=== PATIENT | male | born 2005 | race Caucasian/White ===

== ENCOUNTER 2023-01-03 14:04 | Emergency (ER) | payer BC ==
[~2023-01-03] VITALS: Ht 170.2 cm; Wt 90.0 kg
[2023-01-03 14:13] VITALS: BP 126/84; PULSE 105; TEMP 97; O2SAT 98
[2023-01-03] MEDS ORDERED: HYDROcodone/acetaminophen 10/325mg tab PO ONE (15:15)
[2023-01-03] MEDS ORDERED: naproxen 500mg tablet PO ONE (15:15)
[2023-01-03] MEDS ORDERED: LIDOCAINE 1%/EPI 1:100,000 inj. 10 ML multi-dose vial IJ ONE (15:35)
[2023-01-03 15:49] VITALS: RESP 18
[2023-01-03] MEDS ORDERED: HYDR-3965 PO (18:14)
== END 2023-01-03 18:22 | disposition home or self-care (01) ==
LOC: ER 14:07
DX: S62.603A Fracture of unspecified phalanx of left middle finger, initial encounter for closed fracture (principal); X58.XXXA Exposure to other specified factors, initial encounter; Y93.89 Activity, other specified; Y92.89 Other specified places as the place of occurrence of the external cause; Y99.8 Other external cause status
CPT/HCPCS: 26770; 73140; 99284; A6449

== ENCOUNTER 2023-07-09 13:58 | Emergency (ER) | payer BC, MEDICAID ==
[~2023-07-09] VITALS: Ht 162.6 cm; Wt 74.5 kg
[2023-07-09 14:28] VITALS: TEMP 97.8
[2023-07-09 15:05] LABS: BASOPHILS # (AUTO) 0.1 X10'3 (0-0.2); BASOPHILS % (AUTO) 0.6 % (0-1); EOSINOPHILS # (AUTO) 0.1 X10'3 (0-0.9); EOSINOPHILS % (AUTO) 1.4 % (0-6); HEMATOCRIT 44.7 % (42.0-52.0); HEMOGLOBIN 14.6 g/dl (14.0-17.9); LYMPHOCYTES # (AUTO) 1.9 X10'3 (1.1-4.8); LYMPHOCYTES % (AUTO) 18.3 % (21-51); MEAN CORPUSCULAR HEMOGLOBIN 27.8 PG (27.0-31.0); MEAN CORPUSCULAR HGB CONC 32.7 g/dL (33.0-36.5); MEAN CORPUSCULAR VOLUME 84.8 FL (78-98); MEAN PLATELET VOLUME 7.8 FL (7.4-10.4); MONOCYTES # (AUTO) 0.9 X10'3 (0-0.9); MONOCYTES % (AUTO) 8.4 % (2-12); NEUTROPHILS # (AUTO) 7.3 X10'3 (1.8-7.7); NEUTROPHILS % (AUTO) 71.3 % (42-75); PLATELET COUNT 316 X10'3 (140-440); RED BLOOD COUNT 5.27 X10'6 (4.70-6.10); RED CELL DISTRIBUTION WIDTH 14.5 % (11.5-14.5); WHITE BLOOD COUNT 10.2 X10'3 (4.5-11.0)
[2023-07-09 15:16] LABS: APTT 24 SECONDS (22-32); INR 1.1 INR; PROTHROMBIN TIME 11.6 SECONDS (9.0-12.0)
[2023-07-09 15:19] LABS: ALANINE AMINOTRANSFERASE 16 U/L (12-78); ALBUMIN 3.7 G/DL (3.4-5.0); ALBUMIN/GLOBULIN RATIO 0.9 (1.1-1.5); ALKALINE PHOSPHATASE 63 IU/L (20-180); ANION GAP 3 (8-16); ASPARTATE AMINO TRANSFERASE 15 U/L (10-37); BILIRUBIN,TOTAL 0.4 MG/DL (0.1-1.0); BLOOD UREA NITROGEN 9 MG/DL (7-18); BUN/CREATININE RATIO 10.3 (10.0-20.0); CALCIUM 8.6 MG/DL (8.5-10.1); CHLORIDE 104 MMOL/L (99-107); CREATININE 0.87 MG/DL (0.60-1.10); GLUCOSE 77 MG/DL (70-104); LIPASE 39 U/L (16-77); SODIUM 140 MMOL/L (135-145); TOTAL CARBON DIOXIDE 33.4 MMOL/L (24-32); TOTAL PROTEIN 7.6 G/DL (6.4-8.2); eCRCL 114 ML/MIN; eGFR > 90 ML/MIN
[2023-07-09 16:37] LABS: BILIRUBIN,URINE NEGATIVE (Neg); CLARITY,URINE CLOUDY (Clear); COLOR,URINE YELLOW (Yellow); GLUCOSE, URINE NEGATIVE (Neg); KETONES,URINE NEGATIVE (Neg); LEUKOCYTE ESTERASE ,URINE SMALL (Neg); NITRITES, URINE NEGATIVE (Neg); OCCULT BLOOD,URINE NEGATIVE (Neg); PH,URINE 8.5 (4.8-8.0); PROTEIN,URINE NEGATIVE (Neg)
[2023-07-09 16:43] LABS: UA COLLECTION TYPE CLN CATCH MIDSTREAM
[2023-07-09] MEDS ORDERED: iohexol 350MG/ML 100ml bottle IV ONE (16:43)
[2023-07-09 16:45] LABS: WBC,URINE 20-30 /HPF (0-4)
[2023-07-09 16:46] LABS: AMORPHOUS PHOSPHATES 4+; BACTERIA,URINE FEW /HPF (Neg); SQUAMOUS EPITHELIAL CELL,UR MODERATE /LPF (FEW)
[2023-07-09 17:30] VITALS: BP 132/84; PULSE 88; RESP 14; O2SAT 100
== END 2023-07-09 17:32 | disposition home or self-care (01) ==
LOC: ER 13:58
DX: S70.12XA Contusion of left thigh, initial encounter (principal); S70.02XA Contusion of left hip, initial encounter; F07.81 Postconcussional syndrome; Z88.8 Allergy status to other drugs, medicaments and biological substances; F12.90 Cannabis use, unspecified, uncomplicated; Z85.3 Personal history of malignant neoplasm of breast; X58.XXXA Exposure to other specified factors, initial encounter; Y93.89 Activity, other specified; Y92.89 Other specified places as the place of occurrence of the external cause; Y99.8 Other external cause status
CPT/HCPCS: 36415; 70450; 71045; 71260; 72125; 74177; 80053; 81001; 83690; 85025; 85610; 85730; 86885; 86900; 86901; 87088; 99285; J3490; Q9967

== ENCOUNTER 2024-11-05 14:20 | Emergency (ER) | payer BC, MEDICAID ==
[~2024-11-05] VITALS: Ht 162.6 cm; Wt 87.8 kg
[2024-11-05 14:48] LABS: MEAN PLATELET VOLUME 7.2 FL (7.4-10.4); RED CELL DISTRIBUTION WIDTH 13.2 % (11.5-14.5)
[2024-11-05 15:13] LABS: CREATININE 1.01 MG/DL (0.40-0.90); TOTAL CARBON DIOXIDE 30.4 MMOL/L (24-32)
[2024-11-05 15:14] LABS: eCRCL 76 ML/MIN; eGFR 69 ML/MIN
[2024-11-05 15:20] LABS: ETHANOL < 10 MG/DL (<10)
--- NOTE | 2024-11-05 15:43 | Physician Documentation ---
History of Present Illness ~ Chief Complaint: Mental Health Eval Stated Complaint: SI Time Seen by MD: 14:49 Primary Medical Doctor: NONE HPI Patient is a 19-year-old patient that presents to the emergency department for evaluation of suicidal ideation with the current plan to self-harm. Patient reports that they have been in and out of treatment over the last 3-6 months stopped taking the medication approximately 3 months ago and sub seen the therapist approximately 3-6 months ago after they were discharged from the therapy group they are in due to having to work late. Patient reports severe depression extreme desire to take all of their medication in an effort to commit suicide at this time. Reports that they have been in and out of psychiatric care for several years and and they feel hopeless. Medication Reconciliation Allergies: Coded Allergies: mustard (Unverified Allergy, Severe, 07/09/23) Uncoded Allergies: HONEY BEE (Allergy, Severe, 01/03/23) Miscellaneous Medications Home Med List (No Home Medications), (Reported) Past Medical History Past Medical History: *MUSCULOSKELETAL* Past Surgical History: other Other Past Surgical History: Gastric sleeve, bilateral mastectomy Drug Use: marijuana Lives with: S/O Lives In: Home Occupation: employed, student Review of Systems ROS As stated above in the HPI, otherwise all systems are reviewed and negative. Physical Exam Vital Signs: Temperature: 98.6, Source: Temporal, Heart Rate: 97, Respiratory Rate: 16, BP: 140/90, Pulse Oximetry: 97, Weight: 87.800 Oxygen Flow Rate: 0 Physical Exam VITALS: Reviewed and as above. GENERAL: Alert, no apparent distress. HEENT: Normocephalic, atraumatic, PERRL, EOMI, dry mucosa, no erythema RESPIRATORY: Lungs clear, normal breath sounds, no respiratory distress. CHEST: No accessory muscle use, no retractions CV: Regular rate, rhythm, no edema, no murmur, No: JVD GI: Soft, non-tender, bowels sounds present, no rebound, guarding, or rigidity BACK: No CVA tenderness, or swelling MUSCULOSKELETAL No deformities, no edema SKIN: Warm and dry, no rash NEURO: Oriented x4, No motor or sensory deficit PSYCH: Normal mood and affect, no agitation Progress Progress Note 1126: Patient deemed appropriate for discharge per mental health clinician. Results/Orders Results/Orders Vital Signs 811/05/24 11/05/24 11/06/24 14:21 16:24 23:08 07:30 Temp 98.6 97.1 Pulse 97 78 69 Resp 16 14 12 B/P (MAP) 140/90 125/82 (96) 127/80 (96) Pulse Ox 97 99 98 O2 Flow Rate 0 11/06/24 09:28 Resp 12 B/P (MAP) Laboratory Tests Test 11/05/24 14:33 11/05/24 14:41 11/05/24 15:53 White Blood Count 10.9 Red Blood Count 5.14 Hemoglobin 15.1 Hematocrit 44.3 Mean Corpuscular Volume 86.3 Mean Corpuscular Hemoglobin 29.4 Mean Corpuscular Hemoglobin Concent 34.0 Red Cell Distribution Width 13.2 Platelet Count 309 Mean Platelet Volume 7.2 L Neutrophils (%) (Auto) 78.7 H Lymphocytes (%) (Auto) 14.5 L Monocytes (%) (Auto) 6.1 Eosinophils (%) (Auto) 0.3 Basophils (%) (Auto) 0.4 Neutrophils # (Auto) 8.6 H Lymphocytes # (Auto) 1.6 Monocytes # (Auto) 0.7 Eosinophils # (Auto) 0.0 Basophils # (Auto) 0.0 CBC Comment Sodium Level 142 Potassium Level 3.8 Chloride Level 106 Carbon Dioxide Level 30.4 Anion Gap 6 L Blood Urea Nitrogen 8 Creatinine 1.01 H Estimated GFR/1.73 m2 69 BUN/Creatinine Ratio 7.9 L Glucose Level 95 Calcium Level 9.3 Albumin 4.0 Thyroid Stimulating Hormone (TSH) 1.18 Chemistry Comments Ethyl Alcohol Level < 10 SARS-CoV-2 Antigen (Rapid) Negative Urine Specimen Description Voided Urine Color Straw Urine Clarity Clear Urine pH 7.5 Urine Specific [place] 1.010 Urine Protein Negative Urine Glucose (UA) Negative Urine Ketones Negative Urine Occult Blood Negative Urine Nitrite Negative Urine Bilirubin Negative Urine Urobilinogen 0.2 Urine Leukocyte Esterase Small H Urine RBC 0-2 Urine WBC 5-10 H Urine Squamous Epithelial Cells Few Urine Transitional Epithelial Cells Moderate Urine Bacteria Few Urine Mucus Volume Urine Centrifuged 10 ml Urine HCG, Qualitative Negative Urine Comment Urine Opiates Screen Negative Urine Methadone Screen Negative Urine Fentanyl Screen Negative Urine Barbiturates Screen Negative Urine Phencyclidine Screen Negative Urine Amphetamines Screen Negative Urine Benzodiazepines Screen Negative Urine Cocaine Screen Negative Urine Cannabinoids Screen Positive Drug Screen Comment Medical Decision Making Findings This patient presents with symptoms consistent with an underlying disorder. Presentation not consistent with acute organic causes to include delirium, dementia or drug induced disorders (acute ingestions or withdrawal; no evidence of toxidrome). Given the H&P, I suspect this patient is suicidal and patient was placed on a 1799. The mental health team was consulted and continued patients hold. Patient was medically cleared and transferred to psychiatric care. Differential Dx:Considerations: Include: Alcohol abuse, Anxiety, Bipolar disorder, Conversion disorder, Depression, Encephaloathy, Homicidal, Panic disorder, Personality disorder, Schizophrenia, Substance abuse, Suicidal, Other Departure Time of Disposition: 11:24 Disposition: 01 HOME / SELF CARE / HOMELESS Impression: Primary Impression: Anxiety Additional Impressions: Suicidal ideation Suicidal ideation Condition: Stable Discharge Instructions: Depression, Adult, Suicidal Feelings: How to Help Yourself Additional Instructions: Evaluated by mental health clinician who does not recommend higher level of care for mental health hospitalization. patient will followup with community provider and was given resources and instructed to return if worse. Referrals: NO PRIMARY CARE PROVIDER (PCP) Education Educated: Patient Educated regarding: diagnosis, treatment, need for follow up Signature Scribe Signature: A Attestation: Scribed for Alejandro Alejandre by ANJELICA Morales . 11/05/24 15:43 ALEJANDRO ALEJANDRE Nov 05, 2024 15:43 MERLENE COATS NP Nov 06, 2024 11:25
[2024-11-05 16:16] LABS: URINE HCG NEGATIVE (NEG)
[2024-11-05 16:17] LABS: LEUKOCYTE ESTERASE ,URINE SMALL (Neg); NITRITES, URINE NEGATIVE (Neg); OCCULT BLOOD,URINE NEGATIVE (Neg)
[2024-11-05 16:20] LABS: UA COLLECTION TYPE VOIDED
[2024-11-05 16:24] LABS: SQUAMOUS EPITHELIAL CELL,UR FEW /LPF (FEW)
[2024-11-05 16:37] LABS: URINE AMPHETAMINE SCREEN NEGATIVE (Neg); URINE BARBITUATE SCREEN NEGATIVE (Neg); URINE BENZODIAZEPINES SCREEN NEGATIVE (Neg); URINE CANNABINOID SCREEN POSITIVE (Neg); URINE COCAINE SCREEN NEGATIVE (Neg); URINE METHADONE SCREEN NEGATIVE (Neg); URINE OPIATE SCREEN NEGATIVE (Neg); URINE PHENCYCLIDINE SCREEN NEGATIVE (Neg)
[2024-11-06] MEDS ORDERED: NO HOME MEDS (07:08)
[2024-11-06 07:30] VITALS: BP 127/80; PULSE 69; TEMP 97.1; O2SAT 98
[2024-11-06 09:28] VITALS: RESP 12
== END 2024-11-06 11:39 | disposition home or self-care (01) ==
LOC: EDSEX 14:21 → ER 14:21
DX: F41.9 Anxiety disorder, unspecified (principal); R45.851 Suicidal ideations; Z20.822 Contact with and (suspected) exposure to COVID-19; Z91.018 Allergy to other foods; Z79.899 Other long term (current) drug therapy
CPT/HCPCS: 36415; 80048; 80305; 80320; 81001; 81025; 84443; 85025; 87811; 99284